=== PATIENT | male | born 2000 | race Two or more races ===

== ENCOUNTER 2024-03-11 12:45 | Emergency (ER) | payer MEDICAID, SELFPAY ==
--- NOTE | 2024-03-11 | CRLHL7_ITS ---
For Patients: As a result of the Cures Act, medical imaging exams and procedure reports are released immediately into your electronic medical record. You may view this report before your referring provider. If you have questions, please contact your health care provider. INDICATION: Postreduction TECHNIQUE: : TECHNIQUE: Two views of the left shoulder FINDINGS/IMPRESSION: : Normal articulation of the glenohumeral joint. Previous dislocation has been reduced. Dictated by Sangeetha Bettencourt MD @ 03/11/2024 2:35:20 PM (Electronically Signed)
[2024-03-11 12:49] VITALS: BP 125/66; PULSE 74; RESP 18; TEMP 36.7; O2SAT 96; BMI 29.5
--- NOTE | 2024-03-11 13:04 | CRLHL7_ITS ---
For Patients: As a result of the Cures Act, medical imaging exams and procedure reports are released immediately into your electronic medical record. You may view this report before your referring provider. If you have questions, please contact your health care provider. INDICATION: Left shoulder pain after playing ultimate [employer] TECHNIQUE: Shoulder radiograph 3 views left COMPARISON: None FINDINGS: Bone: No acute fractures or aggressive bone lesions are identified. Joint: Anterior dislocation of the glenohumeral joint is noted. The acromioclavicular joint is unremarkable. Soft tissue: Unremarkable. The visualized hemithorax is unremarkable in appearance. No radiopaque foreign bodies are seen. IMPRESSION: 1. Anterior dislocation of the glenohumeral joint is noted. Dictated by Isiah Lyn MD @ 03/11/2024 1:41:51 PM Dictated by: Isiah Lyn MD @ 03/11/2024 13:41:56 (Electronically Signed)
--- NOTE | 2024-03-11 13:31 | ED.GENADULT ---
HPI - General Adult General Chief complaint: Shoulder Injury/Pain <Delfin Roger MD - Last Filed: 03/11/24 14:42> Stated complaint: Dislocated shoulder <Delfin Roger MD - Last Filed: 03/11/24 14:42> Time Seen by Provider: 03/11/24 13:02 <Delfin Roger MD - Last Filed: 03/11/24 14:42> History of Present Illness HPI narrative: This 23-year-old male comes in with an injury to his left shoulder. He thinks that he has dislocated his shoulder. He was playing Frisbee and someone bumped into his left arm. He states that he has dislocated his right shoulder in the past but not this left 1. He does not report any other injury. <Delfin Roger MD - Last Filed: 03/11/24 14:42> Related Data Home medications: Home Medications ?Medication ?Instructions ?Recorded ?Confirmed albuterol sulfate inhalation PRN 03/11/24 <eDlfin Roger MD - Last Filed: 03/11/24 14:42> Allergies/adverse reactions: Allergies Allergy/AdvReac Type Severity Reaction Status Date / Time No Known Drug Allergies Allergy Verified 03/11/24 12:55 <Delfin Roger MD - Last Filed: 03/11/24 14:42> Review of Systems Status of ROS: Reports: 10 or more systems reviewed and unremarkable except as noted in History and below <Delfin Roger MD - Last Filed: 03/11/24 14:42> Narrative: Constitutional: No fevers, no weight gain or loss. Eyes: No discharge. No vision changes. HENT: No congestion, no sore throat, no ear pain. Cardiovascular: No chest pain, no palpitations. Respiratory: No shortness of breath, no wheezes, no cough. Gastrointestinal: No abdominal pain, no vomiting, no diarrhea. Genitourinary: No dysuria, no hematuria. Musculoskeletal: Left shoulder injury. Skin: No rashes, no pruritis. Neurological: No dizziness, weakness, sensory change, speech change. Endo/Heme/Allergies: No bruising or bleeding. No polydipsia. Pysch: no suicidality, no anxiety, no insomnia. All other systems reviewed and are negative. <Delfin Roger MD - Last Filed: 03/11/24 14:42> Exam Narrative: Exam Narrative: Constitutional: Well-developed, well-nourished, no acute distress. HEENT: Normocephalic, atraumatic. Neck: Normal range of motion. Nontender. Supple. Heart: Regular. No murmurs. Normal rate. Intact distal pulses. Lungs: Clear to auscultation. No chest discomfort. No wheezes, rhonchi, or rales. Abdomen: Normal bowel sounds. Nontender. No rebound tenderness. Genitalia: Deferred. Back: No midline tenderness. Normal range of motion. Extremities: Left shoulder has some anterior fullness typical of dislocation. Skin: Intact. No rash. Warm. No erythema or pallor. Neurologic: No altered sensation. No weakness. Alert and oriented. Psychiatric: No suicidality. No anxiety or depression. No insomnia. Nursing notes and vitals signs are reviewed. <Delfin Roger MD - Last Filed: 03/11/24 14:42> Const: Vital Signs, click to edit/add: Vital Signs - 24 hr 03/11/24 12:49 Temperature 98.0 F Pulse Rate [Pulse Oximeter] 74 Respiratory Rate 18 Blood Pressure [Le ft Upper Arm] 125/66 Pulse Oximetry 96 Oxygen Delivery Me thod Room Air <Delfin Roger MD - Last Filed: 03/11/24 14:42> Vital Signs, click to edit/add: Vital Signs - 24 hr 03/11/24 12:49 Temperature 98.0 F Pulse Rate [Pulse Oximeter] 74 Respiratory Rate 18 Blood Pressure [Le ft Upper Arm] 125/66 Pulse Oximetry 96 Oxygen Delivery Me thod Room Air <[facility] [place] MD - Last Filed: 03/14/24 11:53> Course Reevaluation(s) Reevaluation #1: Skyler was here with a shoulder dislocation. Skyler shoulder had been injected by my colleague Dr. Roger with bupivacaine which did seem to help his discomfort quite a bit. I met Skyler in stab 2. I explained that I would be applying gentle traction in a very slow manner in order to reduce his shoulder. I stated that I would not be making any sudden moves and he seemed relieved by that. We did use a sheet around his upper body for counter traction. Using gentle downward pressure at about 45? because he did not tolerate his arm next to his body, I gently applied traction with each slow expiration while Skyler was practicing deep breathing. I did notice fasciculations around the joint and felt a little slip of the joint. I continued is slight traction and and then gently let go. He is now able to move his arm across his body and appears to have full range of motion. Distally CMS is intact. Post reduction x-rays pending at this time. Did demonstrate [id number] exercises for his post reduction care. <[facility] Washington MD - Last Filed: 03/14/24 11:53> Vital Signs Vital signs: Initial Vital Signs Temperature 98.0 F 03/11/24 12:49 Temperature Source Temporal Artery Scan 03/11/24 12:49 Pulse Rate 74 03/11/24 12:49 Pulse Rhythm Regular 03/11/24 12:49 Respiratory Rate 18 03/11/24 12:49 Blood Pressure 125/66 03/11/24 12:49 Blood Pressure Mean 85 03/11/24 12:49 Blood Pressure Position Sitting 03/11/24 12:49 Pulse Oximetry 96 03/11/24 12:49 Oxygen Delivery Method Room Air 03/11/24 12:49 Vital Signs Temperature 98.0 F 03/11/24 12:49 Pulse Rate 74 03/11/24 12:49 Respiratory Rate 18 03/11/24 12:49 Blood Pressure 125/66 03/11/24 12:49 Pulse Oximetry 96 03/11/24 12:49 Oxygen Delivery Method Room Air 03/11/24 12:49 Temperature 98.0 F 03/11/24 12:49 Pulse Rate 74 03/11/24 12:49 Respiratory Rate 18 03/11/24 12:49 Blood Pressure 125/66 03/11/24 12:49 Pulse Oximetry 96 03/11/24 12:49 Oxygen Delivery Method Room Air 03/11/24 12:49 <Delfin Roger MD - Last Filed: 03/11/24 14:42> Initial Vital Signs Temperature 98.0 F 03/11/24 12:49 Temperature Source Temporal Artery Scan 03/11/24 12:49 Pulse Rate 74 03/11/24 12:49 Pulse Rhythm Regular 03/11/24 12:49 Respiratory Rate 18 03/11/24 12:49 Blood Pressure 125/66 03/11/24 12:49 Blood Pressure Mean 85 03/11/24 12:49 Blood Pressure Position Sitting 03/11/24 12:49 Pulse Oximetry 96 03/11/24 12:49 Oxygen Delivery Method Room Air 03/11/24 12:49 Vital Signs Temperature 98.0 F 03/11/24 12:49 Pulse Rate 74 03/11/24 12:49 Respiratory Rate 18 03/11/24 12:49 Blood Pressure 125/66 03/11/24 12:49 Pulse Oximetry 96 03/11/24 12:49 Oxygen Delivery Method Room Air 03/11/24 12:49 Temperature 98.0 F 03/11/24 12:49 Pulse Rate 74 03/11/24 12:49 Respiratory Rate 18 03/11/24 12:49 Blood Pressure 125/66 03/11/24 12:49 Pulse Oximetry 96 03/11/24 12:49 Oxygen Delivery Method Room Air 03/11/24 12:49 <[place] Washington MD - Last Filed: 03/14/24 11:53> Medical Decision Making MDM Narrative Medical decision making narrative: This patient comes in with an injury to his left shoulder and x-ray images do confirm a anterior dislocation. The patient received an intra-articular injection of bupivacaine which brought some relief to his symptoms. I attempted to reduce the shoulder but was unsuccessful. Dr. Washington made it her attempt and was successful to relocate the shoulder. The patient is feeling better and was placed in a sling. He has access to follow-up with [facility] and is encouraged to do so. <Delfin Roger MD - Last Filed: 03/11/24 14:42> Imaging Data XR L Shoulder: Radiologist's impression: Anterior dislocation of the glenohumeral joint is noted. <Delfin Roger MD - Last Filed: 03/11/24 14:42> Discharge Plan Discharge Clinical Impression: Anterior shoulder dislocation <Delfin Roger MD - Last Filed: 03/11/24 14:42> Patient Disposition: Home, Self-Care <Delfin Roger MD - Last Filed: 03/11/24 14:42> Condition: Improved <Delfin Roger MD - Last Filed: 03/11/24 14:42> Instructions: Shoulder Dislocation (ED) <Delfin Roger MD - Last Filed: 03/11/24 14:42> Additional Instructions: Wear sling and use [id number] medicines as needed and directed for pain. Follow-up with orthopedic clinic for ongoing management. <Delfin Roger MD - Last Filed: 03/11/24 14:42> Prescriptions: No Action albuterol sulfate inhalation PRN <Delfin Roger MD - Last Filed: 03/11/24 14:42> Follow Up/Referrals: Provider,Not a Local [Primary Care Provider] - <Delfin Roger MD - Last Filed: 03/11/24 14:42> Stand Alone Forms: [facility] Info Instructions <Delfin Roger MD - Last Filed: 03/11/24 14:42> Procedures Orthopedic Joint Reduction Joint #1: Time Out Performed: No <[facility] Washington MD - Last Filed: 03/14/24 11:53> Side: left <[facility] Washington MD - Last Filed: 03/14/24 11:53> Joint Reduction Location: shoulder <[place] Washington MD - Last Filed: 03/14/24 11:53> Manipulation used?: Yes <[place] Washington MD - Last Filed: 03/14/24 11:53> Shoulder Technique Used (if applicable): traction/counter-traction <[place] Washington MD - Last Filed: 03/14/24 11:53> Post-reduction neuro vascular exam: intact <[facility] Washington MD - Last Filed: 03/14/24 11:53> Post Reduction X-Ray Obtained: Yes <[place] Washington MD - Last Filed: 03/14/24 11:53> Post Reduction X-Ray Results: reduced <[place] Washington MD - Last Filed: 03/14/24 11:53> Splint Applied: Yes <[place] Washington MD - Last Filed: 03/14/24 11:53> Patient Tolerated Procedure: well <[facility] Washington MD - Last Filed: 03/14/24 11:53>
--- OUTSIDE RECORDS SUMMARY | 2024-03-11 13:46 | XMS_ITS | Referral Summary ---
Author Organization [facility] Address [address] [place] [id number] Care Team Providers Care Telephony Engineer Name Role Phone Harjeet Esquivel MD Primary Care Provider [phone] [facility] Unavailable Allergies Active Allergy Reactions Criticality Noted Date Comments No Known Drug Allergy 04/24/2003 Medications Medication Sig Dispensed Refills Start Date End Date Status albuterol (PROAIR HFA/PROVENTIL HFA/VENTOLIN HFA) 108 (90 Base) MCG/ACT inhalerIndications: Exercise-induced asthma,Encounter for routine child health examination w/o abnormal findings Inhale 2 puffs into the lungs every 6 hours as needed for shortness of breath / dyspnea or wheezing 1 Inhaler 12 05/14/2019 Active Additional Information Patient not taking.Reported on 06/15/2021 Active Problems Problem Noted Date Diagnosed Date Exercise-induced asthma 11/09/2013 Overweight, pediatric, BMI (body mass index) 95- 99% for age Immunizations Name Administration Dates Next Due Comvax (HIB/HepB) 02/05/2004,05/08/2003,02/21/20 03 DTAP (<7y) 08/30/2007, 5,06/26/2003,2002,01/20/2003 HEPA 12/04/2008,05/17/2007 HPV 07/15/2015,02/11/2015,01/14/2015 Influenza (H1N1) 07/16/2009,06/18/2009 Influenza (IIV3) PF 02/10/2011, 9,05/17/2007,2005,05/05/2005 Influenza Vaccine >6 months,quad, PF 02/25/2020, 05/14/2019 MMR 08/30/2007,06/24/2004 Mantoux Tuberculin Skin Test 01/01/2004 Meningococcal ACWY (Menactra??) 05/14/2019,01/14 Pneumococcal (PCV 7) 02/05/2004,06/26/19 04,05/08/2003,2002 Poliovirus, inactivated (IPV) 08/30/2007 ,06/26/2003,05/08/2003,2002 TDAP Vaccine (Adacel) 01/14/2015 Typhoid IM 05/17/2007 Varicella 08/30/2007,02/05/2004 Social History Tobacco Use Types Packs/Day Years Used Date Smoking Tobacco: Never Smokeless Tobacco: Never Tobacco Cessation:Counseling Given: No Alcohol Use Standard Drinks/Week Comments No 0 (1 standard drink = 0.6 oz pur e alcohol) PHQ-2 Answer Date Recorded PHQ-2 Score 0 05/14/2019 Adolescent Education Answer Date Record ed Getting School Help Needed Not on file 03/29 Sex and Gender Information Value Date Recorded Sex Assigned at Male 06/13/2021 1:13 PM PLAY WRITER Gender Identity Male 06/13/2021 1:13 PM PLAY WRITER Sexual Orientation Straight 06/13/2021 1: 13 PM PLAY WRITER Last Filed Vital Signs Vital Sign Reading Time Taken Comments Blood Pressure 110/64 02/25/2020 10:25 AM CDT Pulse 74 02/25/2020 10:25 AM CDT Temperature 36.7 ??C (98 ??F) 02/25/2020 10: 25 AM CDT Respiratory Rate 14 05/14/2019 3:27 PM PLAY WRITER Oxygen Saturation 98% 02/25/2020 10: 25 AM CDT Inhaled Oxygen Concentration - - Weight 86.2 kg (190 lb) 06/15/2021 11:4 8 AM PLAY WRITER PATIENT REPORTED Height 174.6 cm (5' 8.74) 02/25/2020 1 0:25 AM CDT Body Mass Index 28.27 02/25/2020 10:25 AM CDT Plan of Treatment Not on file Advance Directives For more information, please contact: [phone] * No Code Status (Latest Code Status on File) Date Activated Date Inactivated Comments 04/23/2003 1:35 PM 04/23/2003 2:35 PM Care Teams Telephony Engineer Relationship Specialty Start Date End Date Harjeet Esquivel MD [address] [facility] [place] [address] PCP - General Family Practice 01/14/[address] [address] Assigned PCP 07/07/23
--- OUTSIDE RECORDS SUMMARY | 2024-03-11 13:46 | XMS_ITS | Clinical Summary ---
Author Organization [facility] Address [address] [place] [id number] Care Team Providers Care Dragline Operator Name Role Phone Harjeet Esquivel MD Primary Care Provider [phone] [facility] Unavailable Allergies Active Allergy Reactions Criticality Noted [...] (Adacel) 01/14/2015 Typhoid IM 05/17/2007 Varicella 08/30/2007,02/05/2004 Family History Medical History Relation Comments Family History Negative Mother 1 Cancer Paternal Grandfather lung Diabetes Paternal Grandmother Hypertension Paternal Grandmother Asthma No family hx of Relation Status Comments Brother Alive Father 1 Alive Father 2 Alive Mother 1 Alive Mother 2 Alive Paternal Grandfather Paternal Grandmother Sister Alive Social History Tobacco Use Types Packs/Day Years [...] Sex Assigned at Male 06/13/2021 1:13 PM POLITICAL RESEARCH SCIENTIST Gender Identity Male 06/13/2021 1:13 PM POLITICAL RESEARCH SCIENTIST Sexual Orientation Straight 06/13/2021 1: 13 PM POLITICAL RESEARCH SCIENTIST Last Filed Vital Signs Vital Sign Reading Time Taken Comments Blood Pressure 110/64 02/25/2020 10:25 AM CDT Pulse 74 02/25/2020 10:25 AM CDT Temperature 36.7 ??C (98 ??F) 02/25/2020 10: 25 AM CDT Respiratory Rate 14 05/14/2019 3:27 PM POLITICAL RESEARCH SCIENTIST Oxygen Saturation 98% 02/25/2020 10: 25 AM CDT Inhaled Oxygen Concentration - - Weight 86.2 kg (190 lb) 06/15/2021 11:4 8 AM POLITICAL RESEARCH SCIENTIST PATIENT REPORTED Height 174.6 cm (5' 8.74) 02/25/2020 1 0:25 AM CDT Body Mass Index 28.27 02/25/2020 10:25 AM CDT Plan of Treatment Health Maintenance Due Date Last Done Comments ADVANCE CARE PLANNING 2002 ANNUAL REVIEW OF HM ORDERS 2002 ASTHMA ACTION PLAN 2002 Pneumococcal Vaccine: Pediatrics (0 to 5 Years) and At-Risk Patients (6 to 64 Years) (1 of 2 - PCV) 2008 02/05/2004, 06/26/2003, 05/08/2003, Additional history exists HIV SCREENING 2017 HEPATITIS C SCREENING 2020 YEARLY PREVENTIVE VISIT 02/24/2021 02/25/20 20, 05/14/2019, 05/11/2018, Additional history exists ASTHMA CONTROL TEST 12/13/2021 06/15/2021, 02/25/2020, 05/14/2019, Additional history exists PHQ-2 (once per calendar year) 2023 05/14/2019, 04/28/2016 COVID-19 Vaccine ( season) 2024 10/13/2020, 09/22/2020 INFLUENZA VACCINE (#1) 2024 0, 05/14/2019, 02/10/2011, Additional history exists DTAP/TDAP/TD IMMUNIZATION (6 - Td or Tdap) 01/14/2025 01/14/2015, 08/30/2007, 06/24/2004, Additional history exists HEPATITIS B IMMUNIZATION Completed 004, 05/08/2003, 02/20/2003 HPV IMMUNIZATION Completed 07/15/2015, 06/2014, 01/14/2015 MENINGITIS IMMUNIZATION Completed 05/14/2019, 01/14 RSV MONOCLONAL ANTIBODY Aged Out No l onger eligible based on patient's age to complete this topic Advance Directives For more information, please contact: [phone] * No Code Status (Latest Code Status on File) Date Activated Date Inactivated Comments 04/23/2003 1:35 PM 04/23/2003 2:35 PM Care Teams Dragline Operator Relationship Specialty Start Date End Date Harjeet Esquivel MD 0 [facility] [place] [id number] PCP - General Family Practice 01/14/15 [facility] - [address] [address] Assigned PCP 07/07/23
== END 2024-03-11 14:51 | disposition home or self-care (01) ==
PROVIDERS: Emergency Provider Emergency Medicine Emergency Medical Services
DX: S43.005A Unspecified dislocation of left shoulder joint, initial encounter (principal); W50.0XXA Accidental hit or strike by another person, initial encounter
CPT/HCPCS: 23650; 73030; 99284